=== PATIENT | male | born 1955 | race Caucasian/White ===

== ENCOUNTER 2021-08-12 14:19 | Emergency (ER) | payer BC ==
[2021-08-12] MEDS: Ondansetron 4 MG/2 ML SDV IVPUSH ONE (15:09)
[2021-08-12] MEDS: Sodium Chloride 0.9% 1,000 ML IV ONE (15:09)
[2021-08-12] MEDS: Piperacillin/Tazobactam 3.375 GM in Sodium Chloride 0.9% 100 ML IV ONE (17:28)
[2021-08-12] MEDS: LORazepam 1 MG Tab PO ONE (18:41)
[2021-08-12] MEDS: LORazepam 1 MG Tab ONE (19:18)
== END 2021-08-12 16:55 ==
LOC: LB.ED 14:19
DX: K85.90 Acute pancreatitis without necrosis or infection, unspecified (principal); K75.9 Inflammatory liver disease, unspecified; Z20.822 Contact with and (suspected) exposure to COVID-19
CPT/HCPCS: 36415; 74176; 80053; 80143; 81001; 83690; 85025; 96365; 96375; 99285-25; A0425; A0429; A9270-GY; J2405; J2543; J7030; U0002

== ENCOUNTER 2023-02-07 14:37 | Emergency (ER) | payer BC ==
[2023-02-07 15:46] LABS: BASOPHILS ABSOLUTE AUTO 0.01 K/uL (0.02-0.10); BASOPHILS PERCENT AUTO 0.3 % (0.0-0.5); EOSINOPHILS ABSOLUTE AUTO 0.19 K/uL (0.04-0.40); EOSINOPHILS PERCENT AUTO 5.2 % (1.0-5.0); HEMATOCRIT 40.5 % (40.0-54.0); HEMOGLOBIN 13.7 g/dL (13.0-18.0); LYMPHOCYTES ABSOLUTE AUTO 1.28 K/uL (1.50-4.00); LYMPHOCYTES PERCENT AUTO 34.9 % (20.0-40.0); MEAN CORPUSCULAR HEMOGLOBIN 33.6 pg (27.0-32.0); MEAN CORPUSCULAR HGB CONC 33.8 g/dL (31.0-35.0); MEAN CORPUSCULAR VOLUME 99 fL (76-96); MEAN PLATELET VOLUME 10.3 fL (6.0-10.0); MONOCYTES ABSOLUTE AUTO 0.67 K/uL (0.20-0.80); MONOCYTES PERCENT AUTO 18.3 % (3.0-10.0); NEUTROPHILS ABSOLUTE AUTO 1.52 K/uL (2.00-7.50); NEUTROPHILS PERCENT AUTO 41.3 % (45.0-70.0); PLATELET COUNT,PLT 119 K/uL (150-400); RED BLOOD CELL COUNT 4.08 M/uL (4.50-6.50); RED CELL DISTRIBUTION WIDTH 12.9 % (11.0-16.0); WHITE BLOOD CELL COUNT,WBC 3.7 K/uL (4.0-11.0)
[2023-02-07 16:17] LABS: A/G RATIO 0.6 (0.8-2.0); ALBUMIN 2.7 g/dL (3.4-5.0); ANION GAP 11.9 mmol/L (5.0-15.0); BILIRUBIN TOTAL 0.4 mg/dL (0.0-1.0); BUN/CREATININE RATIO 18.1 (6-25); CALCIUM 8.7 mg/dL (8.5-10.1); CARBON DIOXIDE,CO2 29.3 mmol/L (21.0-32.0); CREATININE 0.94 mg/dL (0.70-1.30); EST CRCL DRUG DOSING (CG) 92.39 mL/min; POTASSIUM,K 4.2 mmol/L (3.5-5.1); PROTEIN TOTAL,TP 6.9 g/dL (6.4-8.2)
[2023-02-07 16:39] LABS: APPEARANCE,URINE SLIGHTLY CLOUDY (CLEAR); BILIRUBIN,URINE NEGATIVE (NEGATIVE); COLOR,URINE YELLOW; GLUCOSE,URINE NEGATIVE (NEGATIVE); KETONES,URINE NEGATIVE (NEGATIVE); LEUKOCYTE ESTERASE,URINE SMALL (NEGATIVE); NITRITE,URINE POSITIVE (NEGATIVE); OCCULT BLOOD,URINE TRACE-INTACT (NEGATIVE); PROTEIN,URINE NEGATIVE (NEGATIVE)
[2023-02-07 16:46] LABS: BACTERIA,URINE MANY /HPF; RBC,URINE 0-5 /HPF; WBC CLUMPS,URINE FEW /HPF; WBC,URINE 20-30 /HPF
[2023-02-07] MEDS ORDERED: Ciprofloxacin 500 MG Tab ONE (17:00)
== END 2023-02-07 17:20 | disposition home or self-care (01) ==
LOC: LB.ED 14:37
DX: N39.0 Urinary tract infection, site not specified (principal); Z88.0 Allergy status to penicillin
CPT/HCPCS: 36415; 80053; 81001; 83605; 85025; 87086; 99283; A9270

== ENCOUNTER 2023-09-07 19:02 | Emergency (ER) | payer BC, MEDICARE ==
[2023-09-07] MEDS: Sulfamethoxazole/Trimethoprim 800-160 MG Tab PO ONE (19:27)
[2023-09-07] MEDS: cefTRIAXone 1 GM Vial IM ONE (19:28)
[2023-09-07] MEDS ORDERED: Sulfamethoxazole/Trimethoprim 800-160 MG Tab ONE (19:30)
[2023-09-07] MEDS ORDERED: Cephalexin 500 MG Cap ONE (19:30)
[2023-09-07] MEDS: Lidocaine 1% 5 ML VIAL INJECT ONE (19:37)
[2023-09-08] MEDS: Cephalexin 500 MG Cap ONE (09:47)
== END 2023-09-07 19:43 ==
LOC: LB.ED 19:02
DX: L03.115 Cellulitis of right lower limb (principal); L03.116 Cellulitis of left lower limb; Z88.0 Allergy status to penicillin; Z90.49 Acquired absence of other specified parts of digestive tract; Z79.899 Other long term (current) drug therapy
CPT/HCPCS: 96372; 99282; 99283; A9270-GY; J0696

== ENCOUNTER 2023-09-10 18:42 | Emergency (ER) | payer BC, MEDICARE | END 2023-09-10 20:30 | LOC: LB.ED 18:42 | DX: S29.9XXA Unspecified injury of thorax, initial encounter (principal); Z90.49 Acquired absence of other specified parts of digestive tract; W01.198A Fall on same level from slipping, tripping and stumbling with subsequent striking against other object, initial encounter | CPT/HCPCS: 71101-LT; 99284 ==

== ENCOUNTER 2025-01-25 20:24 | Inpatient (IN) | payer BC, MEDICARE ==
[2025-01-25] MEDS ORDERED: Sodium Chloride 0.9% 10 ML Syringe FLUSH PRN (20:31)
[2025-01-25 20:58] LABS: APPEARANCE,URINE TURBID (CLEAR); GLUCOSE,URINE NEGATIVE (NEGATIVE); OCCULT BLOOD,URINE MODERATE (NEGATIVE)
[2025-01-25 20:59] LABS: MEAN PLATELET VOLUME 10.7 fL (6.0-10.0); PLATELET COUNT,PLT 91.0 K/uL (150-400); RED BLOOD CELL COUNT 4.01 M/uL (4.50-6.50); RED CELL DISTRIBUTION WIDTH 12.7 % (11.0-16.0)
[2025-01-25 21:05] LABS: WBC CLUMPS,URINE MODERATE /HPF
[2025-01-25 21:11] LABS: BLOOD UREA NITROGEN,BUN 25.0 mg/dL (8-26); CARBON DIOXIDE,CO2 25.3 mmol/L (21.0-32.0); CHLORIDE,CL 101.0 mmol/L (98-107); CREATININE 1.06 mg/dL (0.70-1.30); EST CRCL DRUG DOSING (CG) 81.89 mL/min; ESTIMATED GFR 76.0 mL/min (>60); GLUCOSE RANDOM 127.0 mg/dL (74-100); POTASSIUM,K 4.0 mmol/L (3.5-5.1); SODIUM,NA 132.0 mmol/L (136-145); WHITE BLOOD CELL COUNT,WBC 23.2 K/uL (4.0-11.0)
[2025-01-26] MEDS ORDERED: Sodium Chloride 0.9% 10 ML Syringe FLUSH PRN (04:33)
[2025-01-26] MEDS: Lactobacillus Acidophilus/Lactobacillus Sporogenes (Probiotic) Tab PO SCH (07:57)
[2025-01-26] MEDS ORDERED: PREGABALIN 100 MG PO SCH (08:00)
[2025-01-26] MEDS ORDERED: Non-Formulary Medication 1 Each (Lactobacillus Acidophilus [Acidophilus] 1 EACH Cap) PO SCH (08:00)
[2025-01-26 09:26] LABS: BLOOD UREA NITROGEN,BUN 13.0 mg/dL (8-26); CARBON DIOXIDE,CO2 24.3 mmol/L (21.0-32.0); CHLORIDE,CL 101.0 mmol/L (98-107); CREATININE 0.81 mg/dL (0.70-1.30); EST CRCL DRUG DOSING (CG) 101.48 mL/min; ESTIMATED GFR 96.0 mL/min (>60); GLUCOSE RANDOM 174.0 mg/dL (74-100); POTASSIUM,K 3.9 mmol/L (3.5-5.1); SODIUM,NA 128.0 mmol/L (136-145)
[2025-01-26 10:06] LABS: MEAN PLATELET VOLUME 11.7 fL (6.0-10.0); PLATELET COUNT,PLT 83.0 K/uL (150-400); RED BLOOD CELL COUNT 3.58 M/uL (4.50-6.50); RED CELL DISTRIBUTION WIDTH 12.7 % (11.0-16.0); WHITE BLOOD CELL COUNT,WBC 14.0 K/uL (4.0-11.0)
[2025-01-26 10:30] LABS: LACTIC ACID 2.8 mmol/L (0.4-2.0)
[2025-01-26] MEDS: THERA TEARS EYE EYEBOTH PRN (19:04)
[2025-01-27 08:10] LABS: MEAN PLATELET VOLUME 11.3 fL (6.0-10.0); PLATELET COUNT,PLT 71.0 K/uL (150-400); RED BLOOD CELL COUNT 3.69 M/uL (4.50-6.50); RED CELL DISTRIBUTION WIDTH 12.4 % (11.0-16.0); WHITE BLOOD CELL COUNT,WBC 7.3 K/uL (4.0-11.0)
[2025-01-27 08:27] LABS: BLOOD UREA NITROGEN,BUN 8.0 mg/dL (8-26); CARBON DIOXIDE,CO2 25.1 mmol/L (21.0-32.0); CHLORIDE,CL 107.0 mmol/L (98-107); CREATININE 0.88 mg/dL (0.70-1.30); EST CRCL DRUG DOSING (CG) 93.41 mL/min; ESTIMATED GFR 94.0 mL/min (>60); GLUCOSE RANDOM 131.0 mg/dL (74-100); POTASSIUM,K 3.6 mmol/L (3.5-5.1); SODIUM,NA 141.0 mmol/L (136-145)
== END 2025-01-28 16:20 | disposition swing bed (61) | DRG 720 ==
LOC: LB.ED 20:24 → LB.MS 22:19 → UNDOADMIN 22:20
PROVIDERS: ADMIT Surgery; ATTEND Surgery
DX: A41.51 Sepsis due to Escherichia coli [E. coli] (principal); N39.0 Urinary tract infection, site not specified; F03.94 Unspecified dementia, unspecified severity, with anxiety; F03.93 Unspecified dementia, unspecified severity, with mood disturbance; S06.9X0S Unspecified intracranial injury without loss of consciousness, sequela; S14.3XXD Injury of brachial plexus, subsequent encounter; R53.81 Other malaise; H54.7 Unspecified visual loss; K59.09 Other constipation; R29.6 Repeated falls; Z79.899 Other long term (current) drug therapy; Z85.6 Personal history of leukemia; Z98.890 Other specified postprocedural states; Z90.49 Acquired absence of other specified parts of digestive tract
CPT/HCPCS: 36415; 71045; 73060-LT; 73120-LT; 80048; 81001; 83605; 83735; 85027; 87040; 87086; 93005; 93010; 96374; 97110-GP; 97161-GP; 97530-GP; 99223; 99232; 99285; 99285-25; A0425; A0427; A9270-GY; J0696; J1650; J7030

== ENCOUNTER 2025-01-28 13:13 | Inpatient (IN) | payer BC, MEDICARE ==
[2025-01-28] MEDS ORDERED: Tuberculin, PPD 5 Units/0.1 ML 1 ML MDV IDERM SCH (19:00)
[2025-01-28] MEDS ORDERED: Carboxymethylcellulose Sodium 0.5% Ophth Soln 15 ML Bottle EYEBOTH PRN (19:19)
[2025-01-28] MEDS: Lactobacillus Acidophilus/Lactobacillus Sporogenes (Probiotic) Tab PO SCH (19:35)
[2025-01-28] MEDS: Tuberculin, PPD 5 Units/0.1 ML 1 ML MDV IDERM SCH (19:43)
[2025-01-28] MEDS: Carboxymethylcellulose Sodium 1% Ophth Gel 0.4 ML UD Box of 30 EYEBOTH PRN (19:44)
[2025-01-28] MEDS: Sennosides/Docusate Sodium 50-8.6 MG Tab PO SCH (23:57)
[2025-01-31] MEDS: Carboxymethylcellulose Sodium 0.5% Ophth Soln 15 ML Bottle EYEBOTH PRN (15:17)
[2025-02-01 14:20] LABS: APPEARANCE,URINE CLEAR (CLEAR); GLUCOSE,URINE NEGATIVE (NEGATIVE); OCCULT BLOOD,URINE NEGATIVE (NEGATIVE)
[2025-02-11 15:52] VITALS: BP 123/76; PULSE 87
[2025-02-11] MEDS ORDERED: Tuberculin, PPD 5 Units/0.1 ML 1 ML MDV IDERM ONE (20:00)
== END 2025-02-11 15:46 | disposition home or self-care (01) | DRG 861 ==
LOC: LB.MS 16:16
PROVIDERS: ADMIT Family Medicine; ATTEND Family Medicine
DX: R53.81 Other malaise (principal); H54.7 Unspecified visual loss; K59.09 Other constipation; S14.3XXD Injury of brachial plexus, subsequent encounter; F41.9 Anxiety disorder, unspecified; F32.A Depression, unspecified; N39.0 Urinary tract infection, site not specified; Z86.73 Personal history of transient ischemic attack (TIA), and cerebral infarction without residual deficits; Z90.49 Acquired absence of other specified parts of digestive tract; Z98.890 Other specified postprocedural states; Z85.6 Personal history of leukemia; Z79.899 Other long term (current) drug therapy
CPT/HCPCS: 81003; 86580; 87070; 87081; 87205; 97110-GP; 97165-GO; 97530-GP; A9270-GY